=== PATIENT | male | born 1975 ===

== ENCOUNTER 2018-03-21 08:55 | Day surgery (SDC) | payer BC, OTHER ==
[~2018-03-21 08:55] MED LIST: Buffered Lidocaine 0.9% SYRIN* 5 ML/SYR SYRINGE INTRADERM ONE
[2018-03-21] MEDS ORDERED: ceFAZolin 2 GM PREMIX (*) 2 GM/50 ML BAG IVPB ONE (09:05)
[2018-03-21] MEDS ORDERED: Buffered Lidocaine 0.9% SYRIN* 5 ML/SYR SYRINGE ONE (09:05)
[2018-03-21] MEDS ORDERED: Bupivacaine 0.5% SDV PF* 30ML VIAL ONE (09:19)
[2018-03-21] MEDS ORDERED: oxyCODONE TAB* 5 MG TAB PO PRN (09:29)
[2018-03-21] MEDS ORDERED: Midazolam* 1 MG/ML 2 ML VIAL (2 MG) ONE (09:31)
[2018-03-21] MEDS ORDERED: fentaNYL* 50 MCG/ML 2 ML VIAL (100 MCG VIAL) ONE (09:31)
[2018-03-21] MEDS ORDERED: Lidocaine 2% PF * 5 ML VIAL ONE (10:10)
[2018-03-21] MEDS ORDERED: Succinylcholine* 20 MG/ML 10 ML VIAL ONE (10:10)
[2018-03-21] MEDS ORDERED: Dexamethasone IV* 4 MG/ML 1 ML (4 MG) ONE (10:10)
[2018-03-21] MEDS ORDERED: Propofol* 10 MG/ML 20 ML BTL IV PUSH ONE (10:10)
[2018-03-21] MEDS ORDERED: Ketorolac INJ* 30 MG/ML 1 ML VIAL ONE (10:33)
[2018-03-21] MEDS ORDERED: Naloxone* 0.4 MG/ML 1 ML VIAL IV PRN (10:48)
[2018-03-21] MEDS ORDERED: HYDROmorphone INJ* 0.5 MG/0.5 ML SYRINGE IV PRN (10:48)
[2018-03-21] MEDS ORDERED: fentaNYL* 50 MCG/ML 2 ML VIAL (100 MCG VIAL) IV PRN (10:48)
[2018-03-21] MEDS ORDERED: EPHEDrine (Pressors)* 50 MG/ML VIAL ONE (10:53)
[2018-03-21] MEDS ORDERED: Glycopyrrolate IV* 0.2 MG/ML 1 ML VIAL ONE (10:53)
[2018-03-21] MEDS ORDERED: oxyCODONE/Acetamin 5/325 MG* TAB ONE ×2 (11:46→13:00)
[2018-03-21] MEDS: oxyCODONE/Acetamin 5/325 MG* TAB PO PRN ×2 (11:47→13:00)
[2018-03-21] MEDS ORDERED: Metoclopramide IV* 5 MG/ML 2 ML VIAL ONE (13:23)
[2018-03-21 13:48] VITALS: BP 133/89
--- NOTE | 2018-03-27 11:21 | OP ---
INCOMPLETE DICTATION - FULLY REDICTATED DATE OF OPERATION: 03/21/18 - [facility] DATE OF : 79 SURGEON: Hero Huerta MD WEATHER TEACHER: None. ANESTHESIOLOGIST: Dr. Starkey ANESTHESIA: General endotracheal. PRE-OP DIAGNOSIS: Right inguinal hernia. POST-OP DIAGNOSIS: Right inguinal hernia. OPERATIVE PROCEDURE: Laparoscopic preperitoneal right inguinal hernia with mesh. ESTIMATED BLOOD LOSS: Minimal. IV FLUIDS: Crystalloid. SPECIMEN: None. DRAINS: None. COMPLICATIONS: None. COUNTS: Instrument, needle, and sponge counts were correct. DESCRIPTION OF PROCEDURE: The patient was brought to the operating room and placed on the table supine. Sequential compression devices were placed on both lower extremities and general anesthesia was administered. His abdomen was prepped and draped in the usual sterile fashion and after he had been... INCOMPLETE DICTATION [id number]/[facility] #: [id number] MTDD
--- NOTE | 2018-03-27 11:37 | OP ---
CC: Dr. Hero Ley * DATE OF OPERATION: 03/21/18 - [facility] DATE OF : 79 SURGEON: Hero Huerta MD. RECORDS AND INFORMATION MANAGER: None. ANESTHESIOLOGIST: Dr. Starkey. ANESTHESIA: General endotracheal. PRE-OP DIAGNOSIS: Right inguinal hernia. POST-OP DIAGNOSIS: Direct right inguinal hernia. OPERATIVE PROCEDURE: Laparoscopic preperitoneal repair, right inguinal hernia with mesh. ESTIMATED BLOOD LOSS: Minimal. IV FLUIDS: Crystalloids. SPECIMEN: None. DRAINS: None. COMPLICATIONS: None. COUNTS: Instrument, needle, and sponge counts were correct. DESCRIPTION OF PROCEDURE: The patient was brought to the operating room and placed on the table supine. Sequential compression devices were placed on both lower extremities. General anesthesia was administered. Rodriguez catheter was placed. He received appropriate intravenous antibiotics. He was positioned and padded appropriately prior to being prepped and draped in the usual sterile fashion. Time- out was performed. Local anesthetic was infiltrated into the skin and soft tissue prior to each incision. A curvilinear infraumbilical incision was created. The subcutaneous tissues were divided with a cautery and the rectus fascia was identified. This was incised transversely to the right of the midline. After which, the underlying muscle was retracted laterally and a preperitoneal balloon dissector was used to create the preperitoneal space. The dissector was removed and replaced with a 12- mm blunt port. Additional two 5-mm trocars were placed in the lower midline. This was done under direct visualization. The dissection proceeded from the midline laterally starting at the pubic symphysis identifying Louis's ligament and then identifying a direct inguinal hernia. The inferior epigastric vessels were identified in the proper position and maintained. The dissection proceeded laterally to the anterior sacroiliac spine. The peritoneal reflection was identified and the dissection was completed with preservation of the peritoneal sac. Subsequently, the repair was performed with the Medtronic ProGrip mesh, which was fashioned in a 10 x 15 cm mesh patch. This was used to cover the direct, indirect, and femoral spaces. After the mesh was positioned in the preperitoneal space, the 5-mm ports were removed and CO2 removed. Inspection was then performed of the peritoneum by opening the peritoneum through the 12-mm port site and placement of the port in the peritoneal cavity. Inspection revealed good coverage of the mesh with no rents in the peritoneum. Ports were then removed and the carbon dioxide was released. The umbilical site was closed 0 Vicryl in interrupted fashion and the skin was closed with 4-0 Monocryl. Steri-Strips were applied. The patient tolerated the procedure well, was extubated, and transferred to recovery room in stable condition. [id number] #: [id number] MTDD
== END 2018-03-21 13:49 | disposition home or self-care (01) ==
LOC: OR 08:55
PROVIDERS: ATTEND Surgery
DX: K40.90 Unilateral inguinal hernia, without obstruction or gangrene, not specified as recurrent (principal); R00.2 Palpitations
CPT/HCPCS: A9270-GY; J0330; J0690; J1100; J1885; J2250; J2704; J2765; J3010